=== PATIENT | female | born 1975 | race Caucasian/White ===

== ENCOUNTER 2016-10-01 15:02 | Day surgery (SDCO) | payer OTHER ==
[2016-10-01 16:23] LABS: BLOOD NEGATIVE Ery/uL (NEGATIVE); CLARITY CLEAR (CLEAR); COLOR YELLOW (YELLOW); GLUCOSE (U) NORMAL (NORMAL); NITRITE NEGATIVE (NEGATIVE); PROTEIN TRACE (LOW) mg/dL (NEGATIVE); pH 6.5 (5.0-9.0)
[2016-10-01 16:24] LABS: KETONE (U) TRACE mg/dL (NEGATIVE)
[2016-10-01 16:25] LABS: BILIRUBIN 1+ mg/dL (NEGATIVE); LEUKOCYTES TRACE Leu/uL (NEGATIVE)
[2016-10-01 16:31] LABS: BENZODIAZEPINES NEGATIVE (NEGATIVE); COCAINE NEGATIVE (NEGATIVE); URINARY RBC RARE
[2016-10-01 16:32] LABS: AMPHETAMINES NEGATIVE (NEGATIVE); BARBITURATES NEGATIVE (NEGATIVE); MARIJUANA (THC) POSITIVE (NEGATIVE); METHADONE NEGATIVE (NEGATIVE); TRICYCLIC ANTIDEPRESSANT NEGATIVE (NEGATIVE)
[2016-10-01 18:26] LABS: HCT 35.7 % (37.0-47.0); HGB 11.8 g/dl (12.5-16.0); MCH 25.7 pg (25.0-31.0); MCHC 33.1 g/dL (32.0-36.0); MCV 77.6 fL (78.0-100.0); MPV 11.4 fL (6.0-9.5); RBC 4.6 M/uL (4.20-5.40); WBC 8.7 K/uL (4.0-10.5)
[2016-10-01 18:39] LABS: ALBUMIN 3.1 g/dL (3.5-5.0); BILIRUBIN - TOTAL 0.2 mg/dL (0.1-1.0); CREATININE 0.6 mg/dL (0.5-1.0); POTASSIUM 3.7 mmol/L (3.5-5.1); TOTAL PROTEIN 6.1 g/dL (6.4-8.3); URIC ACID 5.7 mg/dL (2.4-5.7)
[2016-10-02 18:28] LABS: CREATININE 0.6 mg/dL (0.5-1.0)
== END 2016-10-02 20:30 | disposition home or self-care (01) ==
LOC: FOD 15:02 → FOB 15:02 → FOD 17:43 → FOB 17:44
PROVIDERS: ADMIT Obstetrics & Gynecology
DX: O12.03 Gestational edema, third trimester (principal); Z3A.36 36 weeks gestation of pregnancy; O99.213 Obesity complicating pregnancy, third trimester; O99.343 Other mental disorders complicating pregnancy, third trimester; F31.9 Bipolar disorder, unspecified; F44.81 Dissociative identity disorder; O99.613 Diseases of the digestive system complicating pregnancy, third trimester; O99.89 Other specified diseases and conditions complicating pregnancy, childbirth and the puerperium; M19.90 Unspecified osteoarthritis, unspecified site; Z83.3 Family history of diabetes mellitus; Z82.61 Family history of arthritis; Z88.5 Allergy status to narcotic agent; Z88.0 Allergy status to penicillin; Z88.8 Allergy status to other drugs, medicaments and biological substances
CPT/HCPCS: 36415; 71020; 80053; 80305; 81001; 82575; 83036; 83615; 84156; 84550; 86703; 86762; 86780; 86787; 86803; 86900; 86901; 87340; G0378